=== PATIENT | female | born 1955 | race Caucasian/White ===

== ENCOUNTER → 2016-03-30 | Day surgery (SDC) | payer BC ==
[2016-03-17 13:18] VITALS: BMI 24.0
[~2016-03-30] VITALS: Ht 160 cm; Wt 63.6 kg
[~2016-03-30] MED LIST: ACET-1138 PO; ALBU1AER9 INH; ASPEC81 PO; B-COTAB18 PO; CLB200 PO; CYM/30 PO; DIPROSONE TOP; DPRSCR15 TOP; DULO60CA44 PO; IBUP-1050 PO; LAMO100T PO; LIDOCAINE HCL 2% 2 ML VIAL (20MG/ML) ONE; LVQ750 PO; OMEG10007 PO; ONDA8TAB6 PO; PROPOFOL IV EMULSION 10 MG/ML 20 ML VIAL IV ONE; RXC5 PO; SNK PO; SODIUM CHLORIDE 0.9% 500ML 500 ML IV ONE; TRIA75TA53 PO; VNTHFA/IN INH
[2016-03-30 14:39] VITALS: Ht 160 cm; Wt 63.6 kg
--- NOTE | 2016-03-30 15:05 | Endo History and Physical ---
History & Physical Date of Service: Mar 30, 2016. Chief Complaint: screening for colon CA Referring Physician: DR. Antoine Rothman History of Present Illness 60 yo CF who presents for screening colonoscopy. Past Medical History Asthma, Anxiety, Hypertension Past Surgical History Hx Cardiac Surgery: No Hx Internal Defibrillator: No Hx Pacemaker: No Hx Abdominal Surgery: Yes (TUBAL LIGATION, LAP OVARIAN CYSTECTOMY) Hx of Implantable Prosthesis: No Hx Post-Op Nausea and Vomiting: No Hx Cancer Surgery: No Hx Thoracic Surgery: No Hx Orthopedic: Yes (LT FOOT SURG) Hx Urinary Tract Surgery: No Family History None Social History Smoking Status: Former Smoker Hx Substance Use: No Hx Alcohol Use: Yes (OCCASIONAL) Allergies Coded Allergies: Latex1 -Allergic Contact Dermititis (Verified Allergy, Unknown, RASH, ) NO KNOWN DRUG ALLERGIES (Verified Allergy, Unknown, NONE, 03/24/16) Current Medications Reported Home Medications Medications Dose Route/Sig Max Daily Dose Days Date Category Dose Instructions Advil (Ibuprofen) 200 Mg Tab 400-600 Mg PO PRN 03/24/16 Reported Vitamin B Complex (B-Complex Vitamins) 1 Tab Tab 1 Tab PO QPM 03/24/16 Reported Weston-3 (Fish Oil) 1 Ea Cap 2 Cap PO QPM 03/24/16 Reported [Diprosone Cr] 1 Dose TOP PRN 03/24/16 Reported 0.05% CREAM Lamictal (Lamotrigine) 100 Mg Tab 100 Mg PO QAM 08/20/14 Reported Cymbalta (Duloxetine Hcl) 60 Mg Cap 60 Mg PO QAM 08/20/14 Reported Cymbalta (Duloxetine HCl) 30 Mg Cap 30 Mg PO QAM 08/20/14 Reported Maxzide 75MG/50MG (Triamterene/HCTZ) Tab 0.5 Tablet PO QAM 08/14/11 Reported Proair Hfa (Albuterol) Aers 2 Puffs INH Q4HR PRN PRN 08/14/11 Reported Vital Signs Weight (Kilograms): 63.64 Height (Feet): 5 Height (Inches): 3 Date Time Temp Pulse Resp B/P Pulse Ox O2 Delivery O2 Flow Rate FiO2 03/30/16 14:51 36.7 71 20 159/77 97 Room Air Physical Exam General Appearance: WD/WN, no apparent distress Respiratory/Chest: Auscultation: breath sounds normal Cardiovascular: Heart Auscultation: RRR Abdomen: Bowel Sounds: normal Inspection & Palpation: soft, non-distended, no tenderness, guarding & rebound Assessment and Plan Assessment: 60 yo CF who presents for screening colonoscopy. Plan: Proceed with colonoscopy.
--- NOTE | 2016-03-30 15:27 | Discharge Instructions ---
Endoscopy Patient Instructions Date / Procedure(s) Performed Mar 30, 2016. Colonoscopy Allergy Information Coded Allergies: Latex1 -Allergic Contact Dermititis (Verified Allergy, Unknown, RASH, ) NO KNOWN DRUG ALLERGIES (Verified Allergy, Unknown, NONE, 03/24/16) Discharge Date / Findings Mar 30, 2016. Diverticulosis Internal hemorrhoids Medication Instructions Stopped Medication(s): vitamins OK to resume all medications today as prescribed. Reported Home Medications Medications Dose Route/Sig Max Daily Dose Days Date Category Dose Instructions Advil (Ibuprofen) 200 Mg Tab 400-600 Mg PO PRN 03/24/16 Reported Vitamin B Complex (B-Complex Vitamins) 1 Tab Tab 1 Tab PO QPM 03/24/16 Reported Todd-3 (Fish Oil) 1 Ea Cap 2 Cap PO QPM 03/24/16 Reported [Diprosone Cr] 1 Dose TOP PRN 03/24/16 Reported 0.05% CREAM Lamictal (Lamotrigine) 100 Mg Tab 100 Mg PO QAM 08/20/14 Reported Cymbalta (Duloxetine Hcl) 60 Mg Cap 60 Mg PO QAM 08/20/14 Reported Cymbalta (Duloxetine HCl) 30 Mg Cap 30 Mg PO QAM 08/20/14 Reported Maxzide 75MG/50MG (Triamterene/HCTZ) Tab 0.5 Tablet PO QAM 08/14/11 Reported Proair Hfa (Albuterol) Aers 2 Puffs INH Q4HR PRN PRN 08/14/11 Reported Provider Instructions Activity Restrictions - No exercising or heavy lifting for 24 hours. - Do not drink alcohol the day of the procedure. - Do not drive a car or operate machinery until the day after the procedure. - Do not make any important decisions or sign important papers in 24 hours after the procedure. Following Day: - Return to full activity which may include returning to work/school. Diet Start your diet with liquids and light foods (jello, soup, juice, toast). Then eat your usual diet if not nauseated. Treatment For Common After Affects For mild abdominal pain, bloating, or excessive gas: - Rest - Eat lightly - Lie on right side Follow-Up Information Follow-up with DR. Antoine Rothman as scheduled Anesthesia Information What You Should Know You have had a procedure that required some medicine to reduce anxiety and discomfort. This treatment is called moderate sedation. After receiving the treatment, you may be sleepy, but you will be able to breathe on your own. The effects of the treatment may last for several hours. Follow these instructions along with Activity/Diet recommendations noted above: * Do NOT do anything where dizziness or clumsiness would be dangerous. * Rest quietly at home today, then you can be up and about tomorrow. * Have a responsible person stay with you the rest of today. * You may have had an I.V. today. If so, you may take the dressing off later today. Recommendations Call your doctor if: * Trouble breathing * Continuous vomiting for more than 24 hours * Temperature above 101 degrees * Severe abdominal pain or bloating * Pain not relieved by pain medicine ordered * There is increased drainage or redness from any incision * A large amount of rectal bleeding greater than 2-3 tablespoons. (If you had a polyp/s removed or have hemorrhoids, a small amount of blood - from the rectum is to be expected.) * You have any unanswered questions or concerns. IN THE EVENT OF A SERIOUS EMERGENCY, GO TO THE NEAREST EMERGENCY ROOM Your discharge instructions were prepared by provider Dwayne Arndt. Patient Instructions Signature Page Ernestine Brandon Patient (or Guardian) Signature/Date: I have read and understand the instructions given to me by my caregivers. Caregiver/RN/Doctor Signature/Date: The above-named patient and/or guardian has received patient instructions on this date. + Original Patient Signature Page (only) stays with chart. Please make copy for patient.
--- NOTE | 2016-03-30 15:29 | GI REPORT ---
Procedure Date: 03/30/2016 3:07 PM Procedure: Colonoscopy Indications: Screening for colorectal malignant neoplasm Medicines: Monitored Anesthesia Care Complications: No immediate complications. Estimated Blood Loss: Estimated blood loss: none. Procedure: Pre-Anesthesia Assessment: - Prior to the procedure, a History and Physical was performed, and patient medications and allergies were reviewed. The patient's tolerance of previous anesthesia was also reviewed. The risks and benefits of the procedure and the sedation options and risks were discussed with the patient. All questions were answered, and informed consent was obtained. Prior Anticoagulants: The patient has taken no previous anticoagulant or antiplatelet agents. ASA Grade Assessment: II - A patient with mild systemic disease. After reviewing the risks and benefits, the patient was deemed in satisfactory condition to undergo the procedure. After I obtained informed consent, the scope was passed under direct vision. Throughout the procedure, the patient's blood pressure, pulse, and oxygen saturations were monitored continuously. The scope was introduced through the anus and advanced to the terminal ileum. The colonoscopy was performed without difficulty. The patient tolerated the procedure well. The quality of the bowel preparation was good. The terminal ileum, ileocecal valve, appendiceal orifice, and rectum were photographed. Findings: Multiple small-mouthed diverticula were found in the sigmoid colon. Non-bleeding internal hemorrhoids were found during retroflexion. The hemorrhoids were small. Non-bleeding external hemorrhoids were found during perianal exam. The hemorrhoids were small. Impression: - Diverticulosis in the sigmoid colon. - Non-bleeding internal hemorrhoids. - Non-bleeding external hemorrhoids. - No specimens collected. Recommendation: - Resume previous diet. - Continue present medications. - Repeat colonoscopy in 10 years for surveillance. - Return to primary care physician as previously scheduled. Dwayne Arndt DO 03/30/2016 3:29:18 PM This report has been signed electronically. Note Initiated On: 03/30/2016 3:07 PM I attest to the content of the Intraoperative Record and orders documented therein, exceptions below
--- NOTE | 2016-03-30 15:35 | Anesthesiology Progress Note ---
Anesthesia Post Op Note Date & Time Mar 30, 2016 at 15:36 Vital Signs Pain Intensity: 0 Vital Signs Past 12 Hours Date Time Temp Pulse Resp B/P Pulse Ox O2 Delivery O2 Flow Rate FiO2 03/30/16 14:51 36.7 71 20 159/77 97 Room Air Notes Mental Status: alert / awake / arousable, participated in evaluation Pt Amnestic to Procedure: Yes Nausea / Vomiting: adequately controlled Pain: adequately controlled Airway Patency, RR, SpO2: stable & adequate BP & HR: stable & adequate Hydration State: stable & adequate Anesthetic Complications: no major complications apparent
[2016-03-30 15:55] VITALS: BP 140/66; PULSE 64; O2SAT 99
== END | disposition home or self-care (01) ==
LOC: C.GI 12:38
PROVIDERS: ATTEND Internal Medicine
DX: Z12.11 Encounter for screening for malignant neoplasm of colon (principal); K57.30 Diverticulosis of large intestine without perforation or abscess without bleeding; I10 Essential (primary) hypertension; K64.8 Other hemorrhoids; K64.4 Residual hemorrhoidal skin tags; J45.909 Unspecified asthma, uncomplicated; Z98.51 Tubal ligation status; Z98.890 Other specified postprocedural states; Z87.891 Personal history of nicotine dependence; Z91.040 Latex allergy status; Z68.24 Body mass index [BMI] 24.0-24.9, adult

== ENCOUNTER 2016-04-11 05:12 | Inpatient (IN) | payer BC ==
[2016-03-24 11:30] VITALS: BMI 28.0
--- NOTE | 2016-03-24 12:04 | PAT Medication Instructions ---
Service Date Mar 24, 2016. Current Home Medication List Albuterol (Proair Hfa), 2 PUFFS INH Q4HR PRN PRN for SOB/Wheezing B-Complex Vitamins (Vitamin B Complex), 1 TAB PO QPM Duloxetine HCl (Cymbalta), 30 MG PO QAM Duloxetine Hcl (Cymbalta), 60 MG PO QAM Fish Oil (Olton-3), 2 CAP PO QPM Ibuprofen (Advil), 400-600 MG PO PRN Lamotrigine (Lamictal), 100 MG PO QAM Triamterene/Hctz (Maxzide 75MG/50MG), 0.5 TABLET PO QAM [Diprosone Cr], 1 DOSE TOP PRN Medication Instructions For Your Scheduled Surgery Ibuprofen (Advil), 400-600 MG PO PRN (patient will check with surgeon for instructions) - Hold the following medications 2 weeks prior to surgery: Fish Oil (Olton-3), 2 CAP PO QPM - Hold the following medications the morning of surgery: Triamterene/Hctz (Maxzide 75MG/50MG), 0.5 TABLET PO QAM - Take the following medications the morning of surgery with a sip of water: Lamotrigine (Lamictal), 100 MG PO QAM Duloxetine HCl (Cymbalta) Albuterol (Proair Hfa), 2 PUFFS INH Q4HR PRN PRN for SOB/Wheezing (bring with you to hospital on day of surgery) - Take the following medications as scheduled the night before surgery: B-Complex Vitamins (Vitamin B Complex), 1 TAB PO QPM Albuterol (Proair Hfa), 2 PUFFS INH Q4HR PRN PRN for SOB/Wheezing (if needed) If you have any questions please call us at [phone] or [phone] ( [place]) or [phone]
--- NOTE | 2016-03-24 13:09 | DIAGNOSTIC IMAGING REPORT ---
CHEST PREADMISSION(PA/LAT) CLINICAL HISTORY: PAT preoperative evaluation COMPARISON STUDY: 07/27/2010 FINDINGS: The bones soft tissues and hemidiaphragms are normal. The cardiomediastinal silhouette is normal. The lungs are clear. The pulmonary vasculature is normal. IMPRESSION: Negative chest. Electronically signed by: Yonis Thomas M.D. 03/24/2016 1:07 PM Dictated Date/Time: 03/24/2016 1:07 PM
[2016-03-24 13:18] LABS: BASO % 0.5 %; BASO ABS # 0.03 K/uL (0-0.2); COMPLETE YES; EOS % 4.5 %; HEMATOCRIT 37.2 % (37-47); IG% 0.2 %; LYMPH % 43.5 %; LYMPH ABS # 2.59 K/uL (1.2-3.4); MEAN CELL VOLUME 88.8 fL (80-100); MEAN CORPUSCULAR HEMOGLOBIN 31.3 pg (25-34); MEAN CORPUSCULAR HGB CONC 35.2 g/dl (32-36); MEAN PLATELET VOLUME 10.7 fL (7.4-10.4); MONO % 6.7 %; NEUT % 44.6 %; PLATELET COUNT 187 K/uL (130-400); RED BLOOD COUNT 4.19 M/uL (4.2-5.4); WHITE BLOOD COUNT 5.96 K/uL (4.8-10.8)
[2016-03-24 13:24] LABS: URINE APPEARANCE CLEAR (CLEAR); URINE BILIRUBIN NEG (NEG); URINE COLOR YELLOW; URINE NITRITE NEG (NEG); URINE PH 6.5 (4.5-7.5); URINE SPECIFIC GRAVITY 1.011 (1.000-1.030); UROBILINOGEN NEG (NEG); ZZUR CULT IF INDIC CLEAN CATCH NO
[2016-03-24 13:31] LABS: MANUAL MICROSCOPIC REQUIRED? NO; REVIEW REQ? NO
[2016-03-24 13:51] LABS: PARTIAL THROMBOPLASTIN RATIO 1.1; PROTHROMBIN TIME (PATIENT) 10.4 SECONDS (9.0-12.0)
[2016-03-24 13:52] LABS: BUN/CREATININE RATIO 40.9 (10-20); CALCIUM 9.1 mg/dl (8.5-10.1); CREATININE 0.87 mg/dl (0.60-1.20); POTASSIUM 3.8 mmol/L (3.5-5.1)
--- NOTE | 2016-04-08 09:45 | HISTORY & PHYSICAL EXAMINATION ---
DATE OF ADMISSION: 04/11/2016 CHIEF COMPLAINT: Left hip pain. HISTORY OF PRESENT ILLNESS: Ernestine is a 60-year-old female with a multiple-year history of pain in her left hip. She rates her pain an 8/10. She has pain with her daily activities. She has limited standing and walking tolerance. Pain is worse with weightbearing. The patient has had anti-inflammatories and home exercise program without relief. She has failed conservative treatment and is scheduled for left hip replacement. PAST MEDICAL HISTORY: Hypertension, COPD, anxiety, and spinal stenosis. She denies heart disease, diabetes or DVT. PAST SURGICAL HISTORY: Cataract extraction, Lasik surgery, left foot reconstruction, ovarian cyst and tubal ligation. SOCIAL HISTORY: The patient drinks alcohol rarely. She denies tobacco use. She lives in a 2-story home. She is . 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 FAMILY HISTORY: Negative for DVT. MEDICATIONS: Albuterol 2 puffs p.r.n., vitamin B complex, duloxetine 30 mg a.m. and 60 mg a.m., fish oil 2 capsules daily, ibuprofen 400-600 mg p.r.n., Lamictal 100 mg, Maxzide 75/50.5 q.a.m. ALLERGIES: None. REVIEW OF SYSTEMS: See HPI. Ten other systems reviewed, all negative. PHYSICAL EXAMINATION: VITAL SIGNS: Height 5 foot 2, weight 156 pounds, BMI 29. GENERAL: This is a well-developed, well-nourished female who is alert and oriented x3. Mood and affect are appropriate. HEAD, EYES, EARS, NOSE, AND THROAT: Normocephalic, atraumatic. Mucous membranes are moist and intact. NECK: Supple without lymphadenopathy. HEART: Regular rate and rhythm without murmurs, rubs or gallops. LUNGS: Clear to auscultation without wheezes or rhonchi. ABDOMEN: Soft and nontender. Bowel sounds are equal and active. EXTREMITIES: No ecchymosis, redness or warmth. Thigh and calf are soft and nontender. Log roll of the hip reproduces pain in the groin. She is neurovascularly intact with +5/5 strength. X-RAY EXAMINATION: AP and lateral views show joint space narrowing and osteophyte formation. IMPRESSION: Degenerative joint disease, left hip. PLAN: The patient will be admitted for a left total hip arthroplasty. We will plan on aspirin for DVT prophylaxis. PCP is Dr. Daron Durand at [facility]. She will have [facility] for home physical therapy.
[~2016-04-11] VITALS: Ht 157.5 cm; Wt 71.2 kg
[2016-04-11] VITALS (11 sets, daily range): BP systolic 122–161; BP diastolic 67–78; PULSE 60–80; TEMP 36.3–36.6; O2SAT 97–100; Ht 157.5 cm; Wt 71.2 kg
[~2016-04-11 05:12] MED LIST changes: -ACET-1138 PO; -ASPEC81 PO; -CLB200 PO; -DPRSCR15 TOP; -LIDOCAINE HCL 2% 2 ML VIAL (20MG/ML) ONE; -LVQ750 PO; -ONDA8TAB6 PO; -PROPOFOL IV EMULSION 10 MG/ML 20 ML VIAL IV ONE; -RXC5 PO; -SNK PO; -SODIUM CHLORIDE 0.9% 500ML 500 ML IV ONE; -VNTHFA/IN INH
[2016-04-11] MEDS ORDERED: LACTATED RINGER'S 1000ML 1,000 ML IV SCH (06:00)
[2016-04-11] MEDS ORDERED: OXYCODONE HCL 10 MG TABCR (OXYCONTIN) PO SCH (06:00)
[2016-04-11] MEDS ORDERED: ROPIVACAINE 5MG/ML 30 ML 150 MG, BUPIVACAINE/EPINEPHR 0.5% MPF 30 ML, KETOROLAC TROMETH... INFIL SCH ×7 (06:00)
[2016-04-11] MEDS ORDERED: DEXAMETHASONE 4 MG TAB PO SCH (06:00)
[2016-04-11] MEDS ORDERED: METOCLOPRAMIDE HCL 10 MG TAB PO SCH (06:00)
[2016-04-11] MEDS ORDERED: POLYMYXIN B SULFATE 100,000 UNITS in NSS 100ML IR SCH (06:00)
[2016-04-11] MEDS ORDERED: VANCOMYCIN INJ 400 MG in NSS 100ML IR SCH (06:00)
[2016-04-11] MEDS ORDERED: TRAMADOL HCL 50 MG TAB PO SCH (06:00)
[2016-04-11] MEDS ORDERED: ACETAMINOPHEN 500 MG TAB PO SCH (06:00)
[2016-04-11] MEDS ORDERED: LACTATED RINGER'S 1000ML IV SCH (06:00)
[2016-04-11] MEDS ORDERED: FAMOTIDINE 20 MG TAB PO SCH (06:00)
[2016-04-11] MEDS ORDERED: CEFAZOLIN 2000 MG/60 ML D5W 60 ML IV SCH (06:00)
[2016-04-11] MEDS ORDERED: GABAPENTIN 300 MG CAP PO SCH (06:00)
[2016-04-11] MEDS ORDERED: CeleBREX 200 MG CAP PO SCH (06:00)
[2016-04-11] MEDS ORDERED: LACTATED RINGER'S 1000ML 500 ML IV ONE (06:00)
[2016-04-11] MEDS: TRANEXAMIC ACID INJ 1,000 MG in SODIUM CHLORIDE 0.9% 100ML 100 ML IV SCH ×2 (06:16→06:30)
[2016-04-11] MEDS ORDERED: BUPIVACAINE 0.5 % 5 MG/1 ML PF 10ML VIAL ONE (06:25)
[2016-04-11] MEDS ORDERED: FENTANYL CITRATE INJ 50 MCG/1 ML 2 ML VIAL ONE (06:37)
[2016-04-11] MEDS ORDERED: MIDAZOLAM HCL 1 MG/ML 2ML VIAL ONE (06:37)
--- NOTE | 2016-04-11 06:42 | History & Physical Bridge Note ---
H&P Re-Evaluation Bridge Note: I have examined the patient, reviewed the History & Physical and in the interval since the performance of the History & Physical I have noted the following changes of clinical significance: No changes noted
[2016-04-11] MEDS ORDERED: ORTHO JOINT ANESTHETIC ONE (06:49)
[2016-04-11] MEDS ORDERED: BACITRACIN 50000 UNIT VIAL ONE (06:50)
[2016-04-11] MEDS ORDERED: POVIDONE-IODINE OP SOLN 30 ML BTL ONE (06:50)
[2016-04-11] MEDS ORDERED: LIDOCAINE HCL 2% 2 ML VIAL (20MG/ML) ONE (07:18)
[2016-04-11] MEDS ORDERED: PROPOFOL IV EMULSION 10 MG/ML 20 ML VIAL IV ONE (07:18)
[2016-04-11] MEDS ORDERED: ONDANSETRON INJ 2 MG/ML 2 ML VIAL IV PRN ×2 (08:00→08:30)
[2016-04-11] MEDS ORDERED: MEPERIDINE HCL 25 MG/ML CARP IV PRN (08:00)
[2016-04-11] MEDS ORDERED: HYDROmorphone INJ 2 MG/ML SYR/VIAL IV PRN (08:00)
[2016-04-11] MEDS ORDERED: EpHEDrine SULFATE INJ 50 MG/ML AMP IV PRN (08:00)
[2016-04-11] MEDS ORDERED: PHENYLEPHRINE 100MCG/ML 5ML SYR IV PRN (08:00)
[2016-04-11] MEDS ORDERED: FLUMAZENIL 0.1 MG/1 ML 10 ML VIAL IV PRN (08:00)
[2016-04-11] MEDS ORDERED: FENTANYL CITRATE INJ 50 MCG/1 ML 2 ML VIAL IV PRN (08:00)
[2016-04-11] MEDS ORDERED: NALOXONE HCL 0.4 MG/1 ML VIAL/CARP IV PRN (08:00)
[2016-04-11] MEDS ORDERED: LABETALOL HCL IV 5 MG/ML 20ML IV PRN (08:00)
[2016-04-11] MEDS ORDERED: ATROPINE SULFATE 0.1 MG/ML 5ML SYR IV PRN (08:00)
--- NOTE | 2016-04-11 08:27 | [facility] Post Operative Brief Note ---
Immediate Operative Summary Operative Date Apr 11, 2016. Pre-Operative Diagnosis Degenerative joint disease, left hip Post-Operative Diagnosis Degenerative joint disease, left hip Procedure(s) Performed Left total hip arthroplasty, direct anterior approach Surgeon Dr Soto Stack Direct Support Worker Surgeon(s) Britany Camarena PA-C Estimated Blood Loss 100ML Findings DJD Specimens A: Left femoral head Complication(s) None Disposition Recovery Room / PACU
[2016-04-11] MEDS ORDERED: ZOLPIDEM TARTRATE 5 MG TAB PO PRN (08:30)
[2016-04-11] MEDS ORDERED: BISACODYL 10 MG SUPP PR PRN (08:30)
[2016-04-11] MEDS ORDERED: METOCLOPRAMIDE HCL INJ 5 MG/ML 2 ML VIAL IV PRN (08:30)
[2016-04-11] MEDS ORDERED: TRAMADOL HCL 50 MG TAB PO PRN (08:30)
[2016-04-11] MEDS ORDERED: DiphenhydrAMINE HCL 50 MG/ML VIAL IV PRN (08:30)
[2016-04-11] MEDS ORDERED: ALUMINUM/MAGNESIUM/SIMETH (MAALOX MAX) 30 ML UDC PO PRN (08:30)
[2016-04-11] MEDS ORDERED: MoRPHine SULFATE 2 MG/ML CARP IV PRN (08:30)
[2016-04-11] MEDS ORDERED: SOD PHOSPHATE/SOD BIPHOSPHATE ENEMA 132 ML BTL PR PRN (08:30)
[2016-04-11] MEDS ORDERED: OXYCODONE HCL IR 5 MG TAB (IMMEDIATE RELEASE) PO PRN (08:30)
[2016-04-11] MEDS ORDERED: ALBUTEROL HFA 8 GM INHALER INH PRN (08:30)
[2016-04-11] MEDS ORDERED: MAGNESIUM HYDROXIDE SUSP 30 ML UDC PO PRN (08:30)
--- NOTE | 2016-04-11 08:41 | DIAGNOSTIC IMAGING REPORT ---
INTRAOPERATIVE FLUOROSCOPIC IMAGES OF THE LEFT HIP CLINICAL HISTORY: Total left hip arthroplasty. COMPARISON STUDY: Hip radiographs December 08, 2015. Fluoroscopy time: 8 seconds. FINDINGS: 2 intraoperative fluoroscopic images demonstrate anatomic alignment of the left hip arthroplasty with expected postsurgical findings. There is an acetabular screw. There is no fracture. No unexpected radiopaque foreign body is identified. IMPRESSION: Expected intraoperative findings during total left hip arthroplasty. Electronically signed by: Alexander Chambers M.D. 04/11/2016 8:39 AM Dictated Date/Time: 04/11/2016 8:28 AM
--- NOTE | 2016-04-11 09:30 | Anesthesiology Progress Note ---
Anesthesia Post Op Note Date & Time Apr 11, 2016 at 09:30 Vital Signs Pain Intensity: 0 Vital Signs Past 12 Hours Date Time Temp Pulse Resp B/P Pulse Ox O2 Delivery O2 Flow Rate FiO2 04/11/16 09:20 65 18 118/71 100 Nasal Cannula 2 04/11/16 09:10 62 18 122/64 100 Nasal Cannula 2 04/11/16 09:00 64 18 127/63 100 Mask 10 04/11/16 08:53 36.9 66 18 131/71 98 Mask 10 04/11/16 05:42 36.6 74 20 161/71 98 Room Air Notes Mental Status: alert / awake / arousable, participated in evaluation Pt Amnestic to Procedure: Yes Nausea / Vomiting: adequately controlled Pain: adequately controlled Airway Patency, RR, SpO2: stable & adequate BP & HR: stable & adequate Hydration State: stable & adequate Neuraxial Anesthesia: was administered, sensory block is resolving Anesthetic Complications: no major complications apparent
--- NOTE | 2016-04-11 10:30 | DIAGNOSTIC IMAGING REPORT ---
LEFT PELVIS/UNILATERAL HIP 1 VIEW CLINICAL HISTORY: Left hip degenerative arthritis. Arthroplasty. COMPARISON: Hip radiographs December 08, 2015. FINDINGS: Alignment of the total left hip arthroplasty is anatomic. There is no fracture or unexpected radiopaque foreign body. Acetabular screw is present. Surgical drain is in place. IMPRESSION: Expected findings following total left hip arthroplasty. Electronically signed by: Alexander Chambers M.D. 04/11/2016 10:29 AM Dictated Date/Time: 04/11/2016 10:28 AM
[2016-04-11] MEDS: MULTIVITAMIN TAB PO SCH (12:07)
[2016-04-11] MEDS: PANTOprazole SOD 40 MG TAB PO SCH (12:07)
[2016-04-11] MEDS: D5W AND 1/2NSS + 20MEQ KCL 1,000 ML IV SCH ×2 (12:08→20:46)
[2016-04-11] MEDS: KETOROLAC TROMETHAMINE 30 MG/ML VIAL IV. SCH ×3 (12:09→23:12)
[2016-04-11] MEDS: ACETAMINOPHEN 500 MG TAB PO SCH ×2 (13:52→21:55)
[2016-04-11] MEDS: CEFAZOLIN IV 2,000 MG in DEXTROSE 5% 50ML 50 ML IV SCH ×2 (14:26→21:55)
[2016-04-11] MEDS ORDERED: TRANEXAMIC ACID INJ 1,000 MG in SODIUM CHLORIDE 0.9% 100ML 100 ML IV SCH (16:00)
--- NOTE | 2016-04-11 17:14 | OPERATIVE REPORT ---
DATE OF OPERATION: 04/11/2016 PREOPERATIVE DIAGNOSIS: Degenerative arthritis, left hip. POSTOPERATIVE DIAGNOSIS: Same. PROCEDURE: Left hip replacement. SURGEON: Soto Stack MD MOVIE MACHINE OPERATOR: PAULY Naylor ANESTHESIA: Spinal. BLOOD LOSS: 100 mL. REPLACEMENT FLUIDS: 1700 mL crystalloid. DRAINS: Hemovac x2. CULTURES: None. COMPLICATIONS: None. COMPONENTS USED: [employer] hip system: Acetabulum size 50, femur size 6 standard offset, and femoral head 0, 32 mm. NOTE: PAULY Naylor was present and assisted throughout due to the complicated nature of this case. She helped with preparation and set up, first assisted throughout and personally closed the fascial, subcutaneous and skin layers and applied the postoperative bandage. DESCRIPTION OF PROCEDURE: Following satisfactory spinal, the patient was supine. The right leg was placed in the well leg valdes and the left leg in the traction device. The leg was prepared with ChloraPrep and draped sterilely. Following a surgical time-out, an anterior approach in the interval between the sartorius and tensor muscles was completed. The circumflex femoral vessels were identified and ligated. An anterior capsulotomy was performed exposing a severely arthritic femoral neck and head. The femoral neck and head were trimmed and removed. The acetabular bone content was removed. The acetabular self-retraining retractor was placed and then reaming was completed. Fluoroscopic guidance was used to impact a 50 shell in an anatomic position and secured with a dome screw. Local anesthetic was placed and after irrigation, the polyethylene liner was placed. The femur was placed into position of external rotation, extension and adduction. Femoral canal was prepared up to the size 6. A trial reduction with a 0 neck length head using fluoroscopy showed good fit and fill of the proximal canal and orthodox of leg lengths using anatomic landmarks. The trial component was removed. The final implant was placed. The hip was irrigated and reduced. A Betadine soak was performed. After 5 minutes, the Betadine was irrigated. A drain was placed. The arthrotomy was closed with #1 Vicryl. After irrigation, the fascia was closed with a running suture of 1 Vicryl, the subcutaneous tissues with 2-0 Vicryl and the skin with a running subcuticular stitch of 3-0 V-Loc. Dermabond and a dry dressing were applied. The patient was returned to her bed in stable condition. I attest to the content of the Intraoperative Record and any orders documented therein. Any exceptio ns are noted below.
[2016-04-11] MEDS: ASPIRIN 81 MG ECTAB PO SCH (20:45)
[2016-04-11] MEDS ORDERED: SENNA 8.6 MG TAB PO SCH (21:00)
[2016-04-12 03:20] VITALS: BP 114/67; PULSE 76; TEMP 36.4; O2SAT 95
[2016-04-12] MEDS: ACETAMINOPHEN 500 MG TAB PO SCH (06:02)
[2016-04-12] MEDS: KETOROLAC TROMETHAMINE 30 MG/ML VIAL IV. SCH ×2 (06:03→11:14)
[2016-04-12] MEDS: D5W AND 1/2NSS + 20MEQ KCL 1,000 ML IV SCH (07:03)
[2016-04-12 07:34] LABS: BASO % 0.3 %; BASO ABS # 0.02 K/uL (0-0.2); COMPLETE YES; EOS % 0.1 %; HEMATOCRIT 27.4 % (37-47); IG% 0.3 %; LYMPH % 22.3 %; LYMPH ABS # 1.68 K/uL (1.2-3.4); MEAN CELL VOLUME 85.1 fL (80-100); MEAN CORPUSCULAR HEMOGLOBIN 30.7 pg (25-34); MEAN CORPUSCULAR HGB CONC 36.1 g/dl (32-36); MEAN PLATELET VOLUME 9.9 fL (7.4-10.4); MONO % 9.2 %; NEUT % 67.8 %; PLATELET COUNT 133 K/uL (130-400); RED BLOOD COUNT 3.22 M/uL (4.2-5.4); WHITE BLOOD COUNT 7.53 K/uL (4.8-10.8)
[2016-04-12 08:00] LABS: BUN/CREATININE RATIO 22.4 (10-20); CALCIUM 8.1 mg/dl (8.5-10.1); CREATININE 0.76 mg/dl (0.60-1.20); POTASSIUM 3.8 mmol/L (3.5-5.1)
[2016-04-12 08:13] VITALS: BP 119/71; PULSE 69; TEMP 36.8; O2SAT 98
--- NOTE | 2016-04-12 08:19 | DISCHARGE SUMMARY ---
DISCHARGE DIAGNOSIS: Degenerative joint disease, left hip. SECONDARY DIAGNOSIS: None. CONSULTS: None. COMPLICATIONS: None. PROCEDURE: The patient underwent a direct anterior left total hip arthroplasty with Dr. Stack on 04/11/2016. BRIEF HISTORY: Please see previously dictated history and physical. HOSPITAL SUMMARY: The patient was admitted on the above day for the above procedure. Procedure went without complication. Postop day 1 the patient was feeling well without complaints. She denied chest pain or shortness of breath. Vital signs were stable. She was afebrile. Dressing was clean, dry and intact. She was neurovascularly intact. Calves were soft and nontender. Hemovac drained 127 and 10 mL per shift. Hemoglobin was 9.9. The patient began physical therapy per protocol. She was discharged to home later that day in stable condition. For further review please see the chart. Lab, x-ray data and discharge instructions as per chart.
[2016-04-12] MEDS ORDERED: ASPEC81 PO (08:24)
[2016-04-12] MEDS ORDERED: ONDA8TAB6 PO (08:24)
[2016-04-12] MEDS ORDERED: RXC5 PO (08:24)
[2016-04-12] MEDS ORDERED: SNK PO (08:24)
[2016-04-12] MEDS ORDERED: ACET-1138 PO (08:24)
[2016-04-12] MEDS ORDERED: CLB200 PO (08:24)
--- NOTE | 2016-04-12 08:26 | Discharge Instructions ---
Discharge Instructions Admission Reason for Admission: Left Hip Degenerative Arthritis Discharge Discharge Diagnosis / Problem: sp left LAURA, direct anterior Discharge Goals Goal(s): Decrease discomfort, Improve function, Increase independence Activity Recommendations Activity Limitations: per Instructions/Follow-up section . Instructions / Follow-Up Instructions / Follow-Up ACTIVITY RECOMMENDATIONS: SELF CARE INSTRUCTIONS AFTER TOTAL HIP REPLACEMENT : Direct Anterior Approach Until the incision and soft tissues around your hip have healed, there is a possibility that the hip prosthesis could dislocate. A. Hip flexion ( Up & Down out of chair or steps ) may be difficult. This is normal. B. Numbness in front of the thigh is also normal for a few weeks. C. Use hand rails when walking on stairs. D. Wear low heeled shoes with non-slip soles. E. Be sure that your floors are free of things that could trip you - throw rugs , electrical cords, small objects. Avoid wet and waxed floors, especially with crutches and canes. F. Try to walk several times a day with rest periods between. G. Continue with all the exercises taught to you in the hospital. Again, make walking a part of your daily routine. SPECIAL CARE INSTRUCTIONS: VERY IMPORTANT TO READ AND REVIEW A. You may still be at risk for phlebitis and blood clots. 1. Wear surgical stockings (LIZZIE hose) for 2 weeks after surgery to improve circulation and reduce swelling. 2. Take Aspirin 81mg twice daily for 4 weeks or as directed by your doctor. This is your blood thinner. 3. High risk patients may be prescribed a stronger blood thinner if necessary. 4. If you are on Coumadin normally, your family doctor/local company intermodal truck driver should monitor your blood work. Expect a phone call the day of or the day after bloodwork is drawn to adjust your dosage. B. You must take antibiotics before having dental work, bladder, bowel and other surgery. Your doctor will provide you with a permanent card to carry describing precautions. C. Call [facility] if you have a fever, redness or swelling around the incision, cloudy drainage from incision, or sudden increase in pain in your hip, not relieved by your regular pain medication. D. Please call the office at if you have any concerns or questions about your operation or recovery. * YOU MAY SHOWER, NO TUB BATHS UNTIL CLEARED BY YOUR DOCTOR. - Keep an extra close eye on the top portion of your incision. Be sure to keep clean & dry. * WEAR LIZZIE HOSE 20 HOURS PER DAY FOR 2 WEEKS. * YOU MAY PROGRESS FROM A WALKER, TO A CANE, TO INDEPENDENT AT YOUR OWN PACE. * MOST PATIENTS WILL HAVE HOME NURSING FOR THERAPY. IF YOU DECIDE TO DO OUTPATIENT PHYSICAL THERAPY, PLEASE SCHEDULE THIS 3 TIMES PER WEEK. * DERMABOND Prineo- This is a mesh tape dressing that is covered with glue. It should remain in place until the incision is properly healed, usually 10-14 days. This dressing is designed to naturally slough off. You may trim the excess mesh tape as it peels off. Incision may be briefly wet in a shower. Dry immediately by blotting with a clean, dry towel. Do not bath or swim until instructed by your doctor. Do not scratch, rub, or pick at the dressing. Do not apply any topical ointments or lotions until dressing is completely removed and/or instructed by your doctor. There may be a small piece of suture material at one end of your incision. Do not pull or trim this. If it is bothersome or catching on clothing, you may cover it with a band-aid. FOLLOW UP VISIT: If appointment is not already scheduled: Please call [facility] to make a follow-up appointment for 2 weeks after your surgery at . Current Hospital Diet Patient's current hospital diet: Regular Diet Discharge Diet Recommended Diet: Regular Diet Procedures Procedures Performed: Left total hip arthroplasty, direct anterior approach Pending Studies Studies pending at discharge: no Medical Emergencies . Who to Call and When: Medical Emergencies: If at any time you feel your situation is an emergency, please call 911 immediately. . Non-Emergent Contact Non-Emergency issues call your: Primary Care Provider . "Provider Documentation" section prepared by Britany Camarena. VTE Core Measure Inpt VTE Proph given/why not?: Other Anticoagulation, T.E.DWero Ramírez, SCD's [place] Drug Monitoring Program Search Results: patient reviewed within database, no issues identified
[2016-04-12] MEDS: ASPIRIN 81 MG ECTAB PO SCH (08:44)
[2016-04-12] MEDS: MULTIVITAMIN TAB PO SCH (08:45)
[2016-04-12] MEDS: PANTOprazole SOD 40 MG TAB PO SCH (08:45)
[2016-04-12] MEDS ORDERED: DULOXETINE HCL 60 MG CAP PO SCH (09:00)
[2016-04-12] MEDS ORDERED: DULOXETINE (CYMBALTA) 30 MG CAP PO SCH (09:00)
[2016-04-12 09:21] VITALS: BP 119/71; PULSE 69; TEMP 36.8; O2SAT 98
--- NOTE | 2016-04-12 10:06 | Anesthesiology Progress Note ---
Anesthesia Post Op Note Date & Time Apr 12, 2016 at 10:05 Vital Signs Pain Intensity: 0.0 Vital Signs Past 12 Hours Date Time Temp Pulse Resp B/P Pulse Ox O2 Delivery O2 Flow Rate FiO2 04/12/16 09:21 36.8 69 16 98 Room Air 04/12/16 08:19 Room Air 04/12/16 08:13 36.8 69 16 119/71 98 Room Air 04/12/16 03:20 36.4 76 16 114/67 95 Room Air 04/11/16 23:20 36.6 68 16 129/69 98 Room Air Notes Mental Status: alert / awake / arousable, participated in evaluation Pt Amnestic to Procedure: Yes Nausea / Vomiting: adequately controlled Pain: adequately controlled Airway Patency, RR, SpO2: stable & adequate BP & HR: stable & adequate Hydration State: stable & adequate Neuraxial Anesthesia: sensory block resolved Anesthetic Complications: no major complications apparent
[2016-04-12 12:27] VITALS: BP 164/83
[2016-04-13] MEDS ORDERED: CeleBREX 200 MG CAP PO SCH (21:00)
[2016-06-13] MEDS ORDERED: LVQ750 PO (09:55)
== END 2016-04-12 13:44 | disposition home health service (06) | DRG 470 ==
LOC: ENRESERVTM → ENRESERVDT → C.ACU 05:12 → C.3E 08:31
PROVIDERS: ADMIT Orthopaedic Surgery; ATTEND Orthopaedic Surgery
PROC: 0SRB04Z Replacement of Left Hip Joint with Ceramic on Polyethylene Synthetic Substitute, Open Approach (ICD-10-PCS; principal; 2016-04-11 07:00)
DX: M16.12 Unilateral primary osteoarthritis, left hip (principal); J44.9 Chronic obstructive pulmonary disease, unspecified; I10 Essential (primary) hypertension; F41.9 Anxiety disorder, unspecified; F32.9 Major depressive disorder, single episode, unspecified; M54.2 Cervicalgia; M54.5 Low back pain; M54.10 Radiculopathy, site unspecified; M48.00 Spinal stenosis, site unspecified; Z79.1 Long term (current) use of non-steroidal anti-inflammatories (NSAID); Z79.899 Other long term (current) drug therapy

== ENCOUNTER → 2016-04-25 | Outpatient (CLI) | payer BC ==
[~2016-04-25] MED LIST changes: +ACET-1138 PO; +ASPEC81 PO; +CLB200 PO; +DPRSCR15 TOP; -IBUP-1050 PO; +LVQ750 PO; +ONDA8TAB6 PO; +RXC5 PO; +SNK PO; +VNTHFA/IN INH
--- NOTE | 2016-04-26 08:02 | MAMMOGRAPHY REPORT ---
BILATERAL DIGITAL SCREENING MAMMOGRAM TOMOSYNTHESIS WITH CAD: 04/25/2016 CLINICAL HISTORY: Routine screening examination. TECHNIQUE: Breast tomosynthesis in addition to standard 2D mammography was performed. Current study was also evaluated with a Computer Aided Detection (CAD) system. COMPARISON: Comparison is made to exams dated: 04/21/2015 mammogram, 04/18/2014 mammogram, 04/17/2013 m ammogram, 04/11/2011, 04/09/2010, 04/08/2009, 04/07/2008 mammograms - [facility]. BREAST COMPOSITION: There are scattered areas of fibroglandular density in both breasts. FINDINGS: An 8 mm circumscribed mass in the upper outer quadrant of the right breast is unchanged in size dating back to at least 04/07/2008, therefore likely benign. No new suspicious mass, architec tural distortion or cluster of microcalcifications is seen. IMPRESSION: ACR BI-RADS CATEGORY 1: NEGATIVE There is no mammographic evidence of malignancy. A 1 year screening mammogram is recommended. The p atient will receive written notification of the results. Approximately 10% of breast cancers are not detected with mammography. A negative mammographic repor t should not delay biopsy if a clinically suggestive mass is present. Zoey Watkins M.D. ay/:04/25/2016 22:34:28 Environmental Director: Dejah CORTES)(Sen), [facility] letter sent: Normal 1/2 BI-RADS Code: ACR BI-RADS Category 1: Negative
== END | disposition home or self-care (01) ==
LOC: C.MAMM 13:17
PROVIDERS: ATTEND Obstetrics & Gynecology
DX: Z12.31 Encounter for screening mammogram for malignant neoplasm of breast (principal)

== ENCOUNTER 2016-06-10 06:47 | Inpatient (IN) | payer BC ==
[~2016-06-10] VITALS: Ht 157.5 cm; Wt 71.0 kg
[~2016-06-10 06:47] MED LIST changes: -DPRSCR15 TOP; -LVQ750 PO; -VNTHFA/IN INH
[2016-06-10] MEDS ORDERED: SODIUM CHLORIDE 0.9% 1000ML 1,000 ML IV STA (07:10)
[2016-06-10] MEDS ORDERED: PIPERACILLIN/TAZOBACTAM 4.5 GM/100ML D5W IV STA (07:15)
[2016-06-10] MEDS ORDERED: LEVAQUIN 750MG / 150ML D5W IV ONE (07:15)
[2016-06-10] MEDS ORDERED: VNTHFA/IN INH (07:21)
[2016-06-10 07:45] LABS: HEMATOCRIT 30.4 % (37-47); MEAN CELL VOLUME 86.1 fL (80-100); MEAN CORPUSCULAR HEMOGLOBIN 30.6 pg (25-34); MEAN CORPUSCULAR HGB CONC 35.5 g/dl (32-36); MEAN PLATELET VOLUME 9.3 fL (7.4-10.4); PLATELET COUNT 125 K/uL (130-400); RED BLOOD COUNT 3.53 M/uL (4.2-5.4); WHITE BLOOD COUNT 20.35 K/uL (4.8-10.8)
[2016-06-10 07:54] LABS: INR 1.1 (0.9-1.1); PARTIAL THROMBOPLASTIN RATIO 1.3; PROTHROMBIN TIME (PATIENT) 11.4 SECONDS (9.0-12.0)
[2016-06-10 08:03] LABS: BUN/CREATININE RATIO 13.9 (10-20); CREATININE 1.7 mg/dl (0.60-1.20); POTASSIUM 2.8 mmol/L (3.5-5.1)
--- NOTE | 2016-06-10 08:11 | DIAGNOSTIC IMAGING REPORT ---
CHEST 2 VIEWS ROUTINE CLINICAL HISTORY: Fever, sore throat, lightheadedness. COMPARISON STUDY: March 24, 2016 FINDINGS: The cardiac and mediastinal contours are normal. There is no evidence of focal pulmonary consolidation. There is no evidence of failure. No pleural effusions are visualized.[ IMPRESSION: No active disease in the chest. Electronically signed by: Enio Mo M.D. 06/10/2016 8:09 AM Dictated Date/Time: 06/10/2016 8:08 AM
[2016-06-10 08:13] LABS: BASO % 0.1 %; BASO ABS # 0.02 K/uL (0-0.2); COMPLETE YES; DOHLE BODIES 1+; IG% 0.4 %; LYMPH % 2.1 %; LYMPH ABS # 0.42 K/uL (1.2-3.4); MONO % 7.6 %; NEUT % 89.8 %; TOXIC GRANULATION 1+
[2016-06-10] MEDS ORDERED: POTASSIUM CHLORIDE 10 MEQ TABCR PO STA (08:15)
[2016-06-10 08:19] LABS: CALCIUM 8.6 mg/dl (8.5-10.1)
--- NOTE | 2016-06-10 08:25 | EMERGENCY ROOM VISIT NOTE ---
History First contact with patient: 06:57 Chief Complaint: REFERRED BY DOCTOR Stated Complaint: DR CALLED BLOOD CULTURE NEGATIVE History of Present Illness The patient is a 60 year old female who presents to the Emergency Room stating that she got a call from her family physician this morning and is growing gram- negative rods in her blood. The patient states that she went to her family doctor yesterday for feeling very weak after having cold symptoms of head congestion, cough and sore throat for 2 weeks. The patient states that she feels chilled but did not take her temperature. The patient states that her cold symptoms have improved. She has minimal cough. The patient denies any urinary symptoms of frequency, urgency, dysuria or hematuria. The patient had a left hip replacement in March. She denies any open wounds or areas of infection on her body. She states they did not do a chest x-ray yesterday at the doctor's office. Review of Systems 10 system review was performed and was negative unless stated otherwise history of present illness. Past Medical/Surgical History Surgical Problems: (1) Post-operative state Left hip replacement Social History Smoking Status: Never Smoker Alcohol Use: occasionally Drug Use: none Marital Status: Housing Status: lives with family Occupation Status: employed Current/Historical Medications Scheduled Albuterol Hfa (Ventolin Hfa), 2-4 PUFFS INH Q6H Duloxetine HCl (Cymbalta), 30 MG PO QAM Duloxetine Hcl (Cymbalta), 60 MG PO QAM Lamotrigine (Lamictal), 100 MG PO QAM Triamterene/Hctz (Maxzide 75MG/50MG), 0.5 TABLET PO QAM Allergies Coded Allergies: Latex1 -Allergic Contact Dermititis (Verified Allergy, Unknown, RASH, 06/10) NO KNOWN DRUG ALLERGIES (Verified Allergy, Unknown, NONE, 06/10/16) Physical Exam Vital Signs Date Time Temp Pulse Resp B/P Pulse Ox O2 Delivery O2 Flow Rate FiO2 06/10/16 06:53 36.9 100 18 89/49 97 Room Air Physical Exam VITALS: Temperature 36.9, blood pressure 89/49, pulse 100, respiratory rate 18, pulse ox 97% on room air. GENERAL: Patient is alert oriented in no acute distress. EYES: PERRLA. EOMs intact. EARS: Canals clear. TMs without fluid level noted. NOSE: Nasal mucosa with minimal erythema and engorgement. PARENTS: No erythema or edema noted. Airway is adequate. NECK: Supple, no lymphadenopathy noted. No carotid bruits noted. LUNGS: Clear auscultation without wheezes rales or rhonchi. CARDIAC: Regular rhythm, tachycardic at a rate of 100. No murmurs noted. Pulses is full and equal throughout. ABDOMEN: Positive bowel sounds all 4 quadrants. Soft, nontender to palpation without organomegaly or masses. NEURO:Cranial nerves two through 12 intact. Cerebellar function intact with [id number]. Fine motor intact with alternating finger motions. LEFT HIP: Anterior incision noted which is healing well. No erythema or drainage noted. No increased temperature to touch. SKIN: Cold and clammy. Medical Decision & Procedures ER Provider Diagnostic Interpretation: CHEST 2 VIEWS ROUTINE CLINICAL HISTORY: Fever, sore throat, lightheadedness. COMPARISON STUDY: March 24, 2016 FINDINGS: The cardiac and mediastinal contours are normal. There is no evidence of focal pulmonary consolidation. There is no evidence of failure. No pleural effusions are visualized.[ IMPRESSION: No active disease in the chest. Electronically signed by: Enio Mo M.D. Laboratory Results 06/10/16 07:30 Red Blood Count 3.53, Mean Corpuscular Volume 86.1, Mean Corpuscular Hemoglobin 30.6, Mean Corpuscular Hemoglobin Concent 35.5, Mean Platelet Volume 9.3, Neutrophils (%) (Auto) 89.8, Lymphocytes (%) (Auto) 2.1, Monocytes (%) (Auto) 7.6, Eosinophils (%) (Auto) 0.0, Basophils (%) (Auto) 0.1, Neutrophils # (Auto) 18.28, Lymphocytes # (Auto) 0.42, Monocytes # (Auto) 1.55, Eosinophils # (Auto) 0.00, Basophils # (Auto) 0.02 06/10/16 07:30 Test 06/10/16 07:30 White Blood Count 20.35 K/uL (4.8-10.8) Red Blood Count 3.53 M/uL (4.2-5.4) Hemoglobin 10.8 g/dL (12.0-16.0) Hematocrit 30.4 % (37-47) Mean Corpuscular Volume 86.1 fL (80-100) Mean Corpuscular Hemoglobin 30.6 pg (25-34) Mean Corpuscular Hemoglobin Concent 35.5 g/dl (32-36) Platelet Count 125 K/uL (130-400) Mean Platelet Volume 9.3 fL (7.4-10.4) Neutrophils (%) (Auto) 89.8 % Lymphocytes (%) (Auto) 2.1 % Monocytes (%) (Auto) 7.6 % Eosinophils (%) (Auto) 0.0 % Basophils (%) (Auto) 0.1 % Neutrophils # (Auto) 18.28 K/uL (1.4-6.5) Lymphocytes # (Auto) 0.42 K/uL (1.2-3.4) Monocytes # (Auto) 1.55 K/uL (0.11-0.59) Eosinophils # (Auto) 0.00 K/uL (0-0.5) Basophils # (Auto) 0.02 K/uL (0-0.2) RDW Standard Deviation 40.3 fL (36.4-46.3) RDW Coefficient of Variation 12.6 % (11.5-14.5) Immature Granulocyte % (Auto) 0.4 % Immature Granulocyte # (Auto) 0.08 K/uL (0.00-0.02) Toxic Granulation 1+ Dohle Bodies 1+ Prothrombin Time 11.4 SECONDS (9.0-12.0) Prothromb Time International Ratio 1.1 (0.9-1.1) Activated Partial Thromboplast Time 33.0 SECONDS (21.0-31.0) Partial Thromboplastin Ratio 1.3 Anion Gap 11.0 mmol/L (3-11) Est Creatinine Clear Calc Drug Dose 32.1 ml/min Estimated GFR () 37.1 Estimated GFR (Non- 32.0 BUN/Creatinine Ratio 13.9 (10-20) Lactic Acid Level 1.1 mmol/L (0.4-2.0) Calcium Level 8.6 mg/dl (8.5-10.1) Total Bilirubin 1.4 mg/dl (0.2-1) Direct Bilirubin 0.7 mg/dl (0-0.2) Aspartate Amino Transf (AST/SGOT) 29 U/L (15-37) Alanine Aminotransferase (ALT/SGPT) 33 U/L (12-78) Alkaline Phosphatase 210 U/L (45-117) Total Protein 7.1 gm/dl (6.4-8.2) Albumin 3.0 gm/dl (3.4-5.0) Lipase 130 U/L (73-393) Medications Administered Medications (Trade) Dose Ordered Sig/Holly Route Start Time Stop Time Status Last Admin Dose Admin Sodium Chloride (Nss 1000ml) 1,000 ml @ 999 mls/hr Q1H1M STAT IV 06/10/16 07:10 06/10/16 08:10 DC 06/10/16 07:48 999 MLS/HR Piperacillin Sod/ Tazobactam Sod (Zosyn Iv) 4.5 gm NOW STAT IV 06/10/16 07:15 06/10/16 07:18 DC 06/10/16 07:48 4.5 GM ED Course The patient was evaluated. IV access was obtained. CBC and differential, renal profile, LFTs and lipase levels, lactic acid, coags were ordered. Chest x -ray was ordered and interpreted by the radiologist myself as above. Urinalysis was ordered. Blood cultures 2 was ordered. I had the lining caser get the recent labs from [facility] which revealed a white count of 15.8 to and preliminary blood culture revealed gram negative rods. The patient was given 1 L normal saline wide-open, she was given Zosyn and Levaquin IV. Labs are reviewed. The patient's white count was 20,000 which is up 5000 from yesterday. The patient's potassium was low at 2.8. The patient was given K- Dur 10 milliequivalents by mouth. Chest x-ray revealed no acute infiltrate. The patient still was not able to give a urine. Went she was reevaluated the patient was reevaluated. The patient's case was discussed with Dr. Reyes who agrees with treatment plan. [facility] hospitalist was consulted for admission. Medical Decision Differential diagnosis include UTI, pyelonephritis, pneumonia, hip infection, bacteremia, sepsis Impression Primary Impression: Bacteremia Additional Impression: Hypokalemia Departure Information Dispostion Being Evaluated By Hospitalist Condition GOOD Referrals Antoine Rothman, D.O. (PCP) Patient Instructions My [facility] Problem Qualifiers
[2016-06-10 08:36] VITALS: O2SAT 97; Ht 157.5 cm; Wt 71.0 kg
[2016-06-10] MEDS ORDERED: ALBUTEROL HFA 8 GM INHALER INH PRN (09:00)
[2016-06-10] MEDS ORDERED: POLYETHYLENE (MIRALAX) 17 GM PACK PO PRN (09:00)
[2016-06-10] MEDS ORDERED: BETAMETHASONE DIP AUG (DIPROLENE) 0.05% CR 15 GM TUBE EXT PRN (09:00)
[2016-06-10] MEDS ORDERED: ONDANSETRON INJ 2 MG/ML 2 ML VIAL IV PRN (09:00)
[2016-06-10] MEDS ORDERED: SODIUM CHLORIDE 0.9% 1000ML 1,000 ML IV SCH (09:00)
[2016-06-10] MEDS ORDERED: DPRSCR15 TOP (09:02)
[2016-06-10] MEDS ORDERED: PIPERACILL/TAZOBAC CONSULT ACTIVE PRN (09:05)
[2016-06-10] MEDS ORDERED: POTASSIUM CHLORIDE 10 MEQ TABCR PO SCH (09:15)
--- NOTE | 2016-06-10 09:34 | History and Physical ---
History & Physical Date & Time of Service: Jun 10, 2016 at 09:10 Chief Complaint: Dr Called Blood Culture Negative Primary Care Physician: Antoine Rothman D.OWero History of Present Illness Source: patient, clinic records, hospital records Patient is a 60 y/o female with a PMHx of HTN who presents at the request of her PCP due to elevated WBC count and gram negative rods in a blood culture. Patient notes that she has been feeling unwell for the past 2 weeks. She has been feeling generalized weakness, lightheadedness, palpitations with activity, shaking chills and a cough productive of green sputum. She was seen in clinic on 06/03 for URI symptoms. She was prescribed Tessalon perls and Flonase and was recommended to try OTC medications for symptomatic relief. She followed up on as she was not feeling any better. She had blood work done and blood culture was growing gram negative rods this morning. CBC was also notable for a WBC count of 15. Patient presented to the ED as advised. Of note, patient did have a left hip replacement done in 03/2016. She denies any pain in her hip or any redness in the area. In the ED, vitals were notable for mild tachycardia and hypotension. Labs were remarkable for a WBC count of 20, Na of 127, Cr of 1.7, K of 2.8. CXR was negative. Patient received potassium, IVF's, Zosyn and Levofloxacin. Past Medical/Surgical History HTN Depression with anxiety Dermatitis of hands and feet Social History Smoking Status: Former Smoker Drug Use: none Marital Status: Housing status: lives with family Occupational Status: employed Immunizations History of Influenza Vaccine: Yes Influenza Vaccine Date: Dec 10, 2015 History of Tetanus Vaccine?: Yes Tetanus Immunization Date: Mar 18, 2010 History of Pneumococcal: Unknown History of Hepatitis B Vaccine: Yes Multi-Drug Resistant Organisms History of MDRO: No Allergies Coded Allergies: Latex1 -Allergic Contact Dermititis (Verified Allergy, Unknown, RASH, 06/10) NO KNOWN DRUG ALLERGIES (Verified Allergy, Unknown, NONE, 06/10/16) Home Medications Scheduled Duloxetine HCl (Cymbalta), 30 MG PO QAM Duloxetine Hcl (Cymbalta), 60 MG PO QAM Lamotrigine (Lamictal), 100 MG PO QAM Triamterene/Hctz (Maxzide 75MG/50MG), 0.5 TABLET PO QAM Scheduled PRN Albuterol Hfa (Ventolin Hfa), 2 PUFFS INH Q4 PRN for SOB/Wheezing Betamethasone Dip (Betamethasone Dipropionat), 1 APPLN TOP BID PRN for dermatitis flares Review of Systems Constitutional- +chills; +generalized weakness; +lightheadedness Eyes- denies blurry vision, double vision, loss of vision ENT- resolved nasal congestion; denies sore throat Pulmonary- denies SOB; +productive cough Cardiac- denies chest pain; +palpitations with exertion GI- denies abdominal pain, nausea, vomiting, diarrhea - denies dysuria, frequency, urgency; +cloudy urine; denies odor Musculoskeletal- +left thigh soreness; denies joint pain Dermatologic- +chronic rash to hands and feet (dermatitis) Neuro- denies focal weakness, numbness or tingling Psych- denies depression or anxiety . Physical Exam Vital Signs Date Time Temp Pulse Resp B/P Pulse Ox O2 Delivery O2 Flow Rate FiO2 06/10/16 09:05 84 06/10/16 08:58 87 18 93/57 99 Room Air 06/10/16 08:36 97 Room Air 06/10/16 06:53 36.9 100 18 89/49 97 Room Air General- awake; alert; NAD Eyes- EOMI; no scleral icterus ENT- clear OC/OP; upper dentures; poor dentition of lower teeth Neck- no palpable LAD; no stridor Lungs- CTA bilaterally; no wheezes/crackles Heart- RRR; no m/r/g Abdomen- soft; NTND; nBS Back- no gross abnormalities Extremities- full ROM of left hip; slight tenderness to palpation of left inner thigh Neuro- no focal deficits Skin- +dermatitis rash of fingers and toes with no open skin lesions/wounds; left hip incision well healed with no surrounding erythema . Diagnostics Laboratory Results Results Past 24 Hours Test 06/10/16 07:30 Range/Units White Blood Count 20.35 4.8-10.8 K/uL Red Blood Count 3.53 4.2-5.4 M/uL Hemoglobin 10.8 12.0-16.0 g/dL Hematocrit 30.4 37-47 % Mean Corpuscular Volume 86.1 80-100 fL Mean Corpuscular Hemoglobin 30.6 25-34 pg Mean Corpuscular Hemoglobin Concent 35.5 32-36 g/dl Platelet Count 125 130-400 K/uL Mean Platelet Volume 9.3 7.4-10.4 fL Neutrophils (%) (Auto) 89.8 % Lymphocytes (%) (Auto) 2.1 % Monocytes (%) (Auto) 7.6 % Eosinophils (%) (Auto) 0.0 % Basophils (%) (Auto) 0.1 % Neutrophils # (Auto) 18.28 1.4-6.5 K/uL Lymphocytes # (Auto) 0.42 1.2-3.4 K/uL Monocytes # (Auto) 1.55 0.11-0.59 K/uL Eosinophils # (Auto) 0.00 0-0.5 K/uL Basophils # (Auto) 0.02 0-0.2 K/uL RDW Standard Deviation 40.3 36.4-46.3 fL RDW Coefficient of Variation 12.6 11.5-14.5 % Immature Granulocyte % (Auto) 0.4 % Immature Granulocyte # (Auto) 0.08 0.00-0.02 K/uL Toxic Granulation 1+ Dohle Bodies 1+ Prothrombin Time 11.4 9.0-12.0 SECONDS Prothromb Time International Ratio 1.1 0.9-1.1 Activated Partial Thromboplast Time 33.0 21.0-31.0 SECONDS Partial Thromboplastin Ratio 1.3 Sodium Level 127 136-145 mmol/L Potassium Level 2.8 3.5-5.1 mmol/L Chloride Level 89 98-107 mmol/L Carbon Dioxide Level 27 21-32 mmol/L Anion Gap 11.0 3-11 mmol/L Blood Urea Nitrogen 24 7-18 mg/dl Creatinine 1.70 0.60-1.20 mg/dl Est Creatinine Clear Calc Drug Dose 32.1 ml/min Estimated GFR () 37.1 Estimated GFR (Non- 32.0 BUN/Creatinine Ratio 13.9 10-20 Random Glucose 112 70-99 mg/dl Lactic Acid Level 1.1 0.4-2.0 mmol/L Calcium Level 8.6 8.5-10.1 mg/dl Total Bilirubin 1.4 0.2-1 mg/dl Direct Bilirubin 0.7 0-0.2 mg/dl Aspartate Amino Transf (AST/SGOT) 29 15-37 U/L Alanine Aminotransferase (ALT/SGPT) 33 12-78 U/L Alkaline Phosphatase 210 45-117 U/L Total Protein 7.1 6.4-8.2 gm/dl Albumin 3.0 3.4-5.0 gm/dl Lipase 130 73-393 U/L Microbiology Results 06/10/16 Blood Culture, Received Pending 06/10/16 Blood Culture, Received Pending CXR normal Normal EKG Impression Assessment and Plan Patient is a 60 y/o female with a PMHx of HTN who presents for evaluation of chills and abnormal labs. Gram negative bacteremia - outpatient culture from 06/09 with gram negative rods - patient received Zosyn and Levofloxacin in ED - repeat cultures pending - continue Zosyn - unclear source of bacteremia (awaiting urine specimen, CXR 2 view clear and no oxygen requirements making pneumonia less likely, no GI symptoms) - lactate normal Hyponatremia / Hypokalemia - likely 2/2 dehydration and continued use of Maxzide - continue IVF's and potassium supplementation - hold Maxzide ANA CRISTINA - likely 2/2 dehydration and continued use of Maxzide - hold Maxzide - continue IVF's Depression with anxiety - continue Cymbalta and Lamictal DVT prophylaxis with heparin sq Advanced Directives Existing Living Will: No Existing Power of Pulling Machine Operator: No VTE Prophylaxis VTE Risk Assessment Done? Y/N: Yes Risk Level: Low
[2016-06-10 11:05] VITALS: BP 89/53; PULSE 82; TEMP 36.8; O2SAT 96
[2016-06-10 11:40] LABS: URINE APPEARANCE TURBID (CLEAR); URINE BILIRUBIN NEG (NEG); URINE COLOR DK YELLOW; URINE EPITHELIAL CELL AUTO >30 /lpf (0-5); URINE NITRITE POS (NEG); URINE SPECIFIC GRAVITY 1.013 (1.000-1.030); UROBILINOGEN NEG (NEG)
[2016-06-10 11:43] LABS: MANUAL MICROSCOPIC REQUIRED? NO; REVIEW REQ? YES
[2016-06-10] MEDS: POTASSIUM CHLORIDE INJ 10 MEQ in SODIUM CHLORIDE 0.9% 1000ML 1,000 ML IV SCH ×2 (13:06→21:25)
[2016-06-10] MEDS: PIPERACILL/TAZOBAC IV 3.375 GM in DEXTROSE 5% 100ML IV SCH ×2 (13:51→21:25)
[2016-06-10] MEDS: HEPARIN SOD 5000 UNIT/0.5 ML CARP SQ SCH ×2 (13:58→21:26)
[2016-06-10 15:39] LABS: BUN/CREATININE RATIO 16.9 (10-20); CALCIUM 8.1 mg/dl (8.5-10.1); CREATININE 1.4 mg/dl (0.60-1.20); POTASSIUM 2.8 mmol/L (3.5-5.1)
[2016-06-10 15:49] VITALS: BP 104/65; PULSE 80; TEMP 36.6; O2SAT 91
[2016-06-10] MEDS ORDERED: POTASSIUM CHLORIDE 20 MEQ TABCR PO ONE (16:00)
[2016-06-10] MEDS: ACETAMINOPHEN 325 MG TAB PO PRN (16:58)
[2016-06-10] MEDS ORDERED: LORAZEPAM 0.5 MG TAB PO ONE (21:42)
[2016-06-10 22:42] VITALS: BP 108/71; PULSE 83; TEMP 36.2; O2SAT 98
[2016-06-11] MEDS: POTASSIUM CHLORIDE INJ 10 MEQ in SODIUM CHLORIDE 0.9% 1000ML 1,000 ML IV SCH ×3 (04:00→20:03)
[2016-06-11 05:11] LABS: HEMATOCRIT 29.8 % (37-47); MEAN CELL VOLUME 86.1 fL (80-100); MEAN CORPUSCULAR HEMOGLOBIN 30.3 pg (25-34); MEAN CORPUSCULAR HGB CONC 35.2 g/dl (32-36); MEAN PLATELET VOLUME 9.5 fL (7.4-10.4); PLATELET COUNT 133 K/uL (130-400); RED BLOOD COUNT 3.46 M/uL (4.2-5.4); WHITE BLOOD COUNT 15.84 K/uL (4.8-10.8)
[2016-06-11] MEDS: ACETAMINOPHEN 325 MG TAB PO PRN ×3 (05:12→20:49)
[2016-06-11] MEDS: HEPARIN SOD 5000 UNIT/0.5 ML CARP SQ SCH ×3 (05:37→22:20)
[2016-06-11 05:40] LABS: BUN/CREATININE RATIO 17.8 (10-20); CALCIUM 8.4 mg/dl (8.5-10.1); CREATININE 1.4 mg/dl (0.60-1.20); POTASSIUM 3.5 mmol/L (3.5-5.1)
[2016-06-11 05:43] LABS: ALB/GLOB RATIO 0.6 (0.9-2)
[2016-06-11] MEDS: PIPERACILL/TAZOBAC IV 3.375 GM in DEXTROSE 5% 100ML IV SCH ×3 (06:08→22:20)
[2016-06-11] MEDS: DULOXETINE HCL 60 MG CAP PO SCH (07:18)
[2016-06-11] MEDS: DULOXETINE (CYMBALTA) 30 MG CAP PO SCH (07:18)
[2016-06-11 07:50] VITALS: BP 105/68; PULSE 83; TEMP 36.6; O2SAT 96
[2016-06-11] MEDS ORDERED: ZOLPIDEM TARTRATE 5 MG TAB PO PRN (09:30)
--- NOTE | 2016-06-11 12:04 | Progress Note ---
Medicine Progress Note Date & Time of Visit: Jun 11, 2016 at 11:58. Subjective Patient seen and examined. Ambulates to bathroom. Denies lightheadedness. Denies chills. Did not get much sleep last night. Objective Last 8 Hrs Date Time Temp Pulse Resp B/P Pulse Ox O2 Delivery O2 Flow Rate FiO2 06/11/16 07:50 36.6 83 18 105/68 96 Room Air 06/11/16 07:26 Room Air Physical Exam: General-awake; alert; NAD Eyes-EOMI; no scleral icterus ENT-clear OP; +upper dentures Neck-no stridor; trachea midline Lungs-scattered rubs and wheezes Heart-RRR; no m/r/g Abdomen-soft; NTND; nBS Extremities-no c/c/e; no deformity Neuro-no focal deficits Back-no CVA tenderness Laboratory Results: Last 24 Hours Test 06/10/16 14:59 06/11/16 04:55 Sodium Level 128 mmol/L 133 mmol/L Potassium Level 2.8 mmol/L 3.5 mmol/L Chloride Level 91 mmol/L 99 mmol/L Carbon Dioxide Level 27 mmol/L 28 mmol/L Anion Gap 10.0 mmol/L 6.0 mmol/L Blood Urea Nitrogen 24 mg/dl 25 mg/dl Creatinine 1.40 mg/dl 1.40 mg/dl Est Creatinine Clear Calc Drug Dose 39.0 ml/min 39.0 ml/min Estimated GFR () 46.9 46.9 Estimated GFR (Non- 40.5 40.5 BUN/Creatinine Ratio 16.9 17.8 Random Glucose 92 mg/dl 96 mg/dl Calcium Level 8.1 mg/dl 8.4 mg/dl White Blood Count 15.84 K/uL Red Blood Count 3.46 M/uL Hemoglobin 10.5 g/dL Hematocrit 29.8 % Mean Corpuscular Volume 86.1 fL Mean Corpuscular Hemoglobin 30.3 pg Mean Corpuscular Hemoglobin Concent 35.2 g/dl RDW Standard Deviation 41.2 fL RDW Coefficient of Variation 12.9 % Platelet Count 133 K/uL Mean Platelet Volume 9.5 fL Total Bilirubin 0.7 mg/dl Aspartate Amino Transf (AST/SGOT) 18 U/L Alanine Aminotransferase (ALT/SGPT) 26 U/L Alkaline Phosphatase 177 U/L Total Protein 6.5 gm/dl Albumin 2.4 gm/dl Globulin 4.1 gm/dl Albumin/Globulin Ratio 0.6 Date/Time Source Procedure Growth Status 06/11/16 04:58 Blood Blood Culture Pending Received 06/11/16 04:55 Blood Blood Culture Pending Received 06/11/16 09:48 Sputum Expectorated Sputum Gram Stain Pending Received 06/11/16 09:48 Sputum Expectorated Sputum Sputum Culture Pending Received Assessment & Plan Patient is a 60 y/o female with a PMHx of HTN who presented for evaluation of chills and abnormal labs. Gram negative bacteremia - outpatient culture from 06/09 with gram negative rods - patient received Zosyn and Levofloxacin in ED - cultures from 06/10 with gram negative bacilli - cultures from 06/11 pending - continue Zosyn - urinalysis with nitrate + and WBC - urine culture with gram negative bacilli - sputum culture pending - lactate normal Hyponatremia / Hypokalemia - likely 2/2 dehydration and continued use of Maxzide - continue IVF's and potassium supplementation - hold Maxzide - improving ANA CRISTINA - likely 2/2 dehydration and continued use of Maxzide - hold Maxzide - continue IVF's - improving Depression with anxiety - continue Cymbalta and Lamictal DVT prophylaxis with heparin sq Current Inpatient Medications: Current Inpatient Medications Medications (Trade) Dose Ordered Sig/Holly Route Start Time Stop Time Status Last Admin Dose Admin Heparin Sodium (Porcine) (Heparin Sq 5000 Unit/0.5ml) 5,000 unit Q8 SQ 06/10/16 14:00 07/10/16 13:59 06/11/16 05:37 5,000 UNIT Acetaminophen (Tylenol Tab) 650 mg Q4H PRN PO 06/10/16 09:00 07/10/16 08:59 06/11/16 05:12 650 MG Polyethylene (Miralax Powder Packet) 17 gm DAILY PRN PO 06/10/16 09:00 07/10/16 08:59 Ondansetron HCl (Zofran Inj) 4 mg Q6H PRN IV 06/10/16 09:00 07/10/16 08:59 Piperacillin Sod/ Tazobactam Sod (Consult) 1 ea UD PRN N/A 06/10/16 09:05 07/10/16 09:04 Albuterol (Ventolin Hfa Inhaler) 2 puffs Q4 PRN INH 06/10/16 09:00 07/10/16 08:59 Duloxetine HCl (Cymbalta Cap) 30 mg QAM PO 06/11/16 08:00 07/11/16 08:59 06/11/16 07:18 30 MG Duloxetine HCl (Cymbalta Cap) 60 mg QAM PO 06/11/16 08:00 07/11/16 08:59 06/11/16 07:18 60 MG Lamotrigine (Lamictal Tab) 100 mg QAM PO 06/11/16 08:00 07/11/16 08:59 06/11/16 07:18 100 MG Betamethasone Dipropion Augmented 1 appln 1 appln BID PRN EXT 06/10/16 09:00 07/10/16 08:59 Potassium Chloride 10 meq/ Sodium Chloride 1,005 ml @ 125 mls/hr Q8H3M IV 06/10/16 12:00 07/10/16 11:59 06/11/16 11:43 125 MLS/HR Piperacillin Sod/ Tazobactam Sod/ Dextrose (Zosyn Iv/D5 100ml) 115 ml @ 28.75 mls/ hr Q8H IV 06/10/16 14:00 06/24/16 13:59 06/11/16 06:08 28.75 MLS/HR Zolpidem Tartrate (Ambien Tab) 5 mg HS PRN PO 06/11/16 09:30 07/11/16 09:29
[2016-06-11 14:55] VITALS: BP 129/77; PULSE 98; TEMP 38.5; O2SAT 98
[2016-06-11 22:28] VITALS: BP 122/74; PULSE 96; TEMP 37.7; O2SAT 98
[2016-06-12] VITALS (8 sets, daily range): BP systolic 128–143; BP diastolic 76–79; PULSE 77–93; TEMP 36.5–38.4; O2SAT 95–99
[2016-06-12] MEDS: POTASSIUM CHLORIDE INJ 10 MEQ in SODIUM CHLORIDE 0.9% 1000ML 1,000 ML IV SCH (03:17)
[2016-06-12] MEDS: PIPERACILL/TAZOBAC IV 3.375 GM in DEXTROSE 5% 100ML IV SCH ×3 (05:28→21:54)
[2016-06-12] MEDS: HEPARIN SOD 5000 UNIT/0.5 ML CARP SQ SCH ×3 (05:32→21:54)
[2016-06-12 06:25] LABS: HEMATOCRIT 27.4 % (37-47); MEAN CELL VOLUME 86.4 fL (80-100); MEAN CORPUSCULAR HGB CONC 34.7 g/dl (32-36); MEAN PLATELET VOLUME 9.4 fL (7.4-10.4); PLATELET COUNT 146 K/uL (130-400); RED BLOOD COUNT 3.17 M/uL (4.2-5.4); WHITE BLOOD COUNT 10.55 K/uL (4.8-10.8)
[2016-06-12 07:09] LABS: BUN/CREATININE RATIO 15.1 (10-20); CALCIUM 8.2 mg/dl (8.5-10.1); POTASSIUM 3.7 mmol/L (3.5-5.1)
[2016-06-12] MEDS: ACETAMINOPHEN 325 MG TAB PO PRN ×3 (07:50→22:02)
[2016-06-12] MEDS: DULOXETINE HCL 60 MG CAP PO SCH (07:50)
[2016-06-12] MEDS: DULOXETINE (CYMBALTA) 30 MG CAP PO SCH (07:50)
--- NOTE | 2016-06-12 10:03 | DIAGNOSTIC IMAGING REPORT ---
ABDOMEN AND PELVIS CT WITHOUT CONTRAST CT DOSE: 1603.52 mGy.cm HISTORY: eval for possible stones; shannon; E coli in urine and blood TECHNIQUE: Multiaxial CT images of the abdomen and pelvis were performed without the use of intravenous and oral contrast according to the standard department stone protocol. COMPARISON STUDY: None. FINDINGS: The lung bases are clear. Left total hip arthroplasty. The unenhanced liver, spleen, adrenal glands, and pancreas are unremarkable. Normal gallbladder. No retroperitoneal lymphadenopathy. Trace pelvic free fluid. The bladder is partially obscured by the metallic artifact from the left hip but appears unremarkable. Small calcified uterine fibroid. Suboptimal evaluation for bowel pathology due to the lack of intravenous and oral contrast. However, there is no definite bowel wall thickening or obstruction. Moderate stool within the colon. No evidence for bowel obstruction. A 7 mm hypodense lesion within the right kidney is too small to characterize. No renal stones or hydronephrosis. Mild bilateral perinephric fat stranding/edema. Subcutaneous soft tissue thickening within the left hip. IMPRESSION: 1. No renal stones or hydronephrosis. 2. Mild bilateral perinephric fat stranding/edema. This could be due to an infectious process such as pyelonephritis or acute renal insufficiency. Recommend correlation with urinalysis. 3. Moderate stool within the colon. 4. No bowel wall thickening or obstruction. 5. Trace pelvic free fluid Electronically signed by: Dejon Pena M.D. 06/12/2016 10:01 AM Dictated Date/Time: 06/12/2016 9:55 AM
--- NOTE | 2016-06-12 16:06 | Progress Note ---
Medicine Progress Note Date & Time of Visit: Jun 12, 2016 at 16:01. Subjective Patient seen and examined. States that she had a good night sleep and feels better this morning. Low grade fever this morning. Objective Last 8 Hrs Date Time Temp Pulse Resp B/P Pulse Ox O2 Delivery O2 Flow Rate FiO2 06/12/16 09:30 95 Room Air 06/12/16 09:27 37.0 Physical Exam: General-awake; alert; NAD Eyes-EOMI; no scleral icterus ENT-+upper dentures Neck-no stridor; trachea midline Lungs-improved scattered rubs Heart-RRR; no m/r/g Abdomen-soft; NTND; nBS Extremities-no c/c/e; no deformity Neuro-no focal deficits Back-no CVA tenderness Laboratory Results: Last 24 Hours Test 06/12/16 05:29 White Blood Count 10.55 K/uL Red Blood Count 3.17 M/uL Hemoglobin 9.5 g/dL Hematocrit 27.4 % Mean Corpuscular Volume 86.4 fL Mean Corpuscular Hemoglobin 30.0 pg Mean Corpuscular Hemoglobin Concent 34.7 g/dl RDW Standard Deviation 43.1 fL RDW Coefficient of Variation 13.4 % Platelet Count 146 K/uL Mean Platelet Volume 9.4 fL Sodium Level 135 mmol/L Potassium Level 3.7 mmol/L Chloride Level 103 mmol/L Carbon Dioxide Level 25 mmol/L Anion Gap 7.0 mmol/L Blood Urea Nitrogen 15 mg/dl Creatinine 1.00 mg/dl Est Creatinine Clear Calc Drug Dose 54.5 ml/min Estimated GFR () 70.4 Estimated GFR (Non- 60.8 BUN/Creatinine Ratio 15.1 Random Glucose 84 mg/dl Calcium Level 8.2 mg/dl Assessment & Plan Patient is a 60 y/o female with a PMHx of HTN who presented for evaluation of chills and abnormal labs. Gram negative bacteremia - outpatient culture from 06/09 with wisdom-susceptible E coli - patient received Zosyn and Levofloxacin in ED - cultures from 06/10 with gram negative bacilli - cultures from 06/11 pending - continue Zosyn - urinalysis with nitrate + and WBC - urine culture with wisdom-sensitive E coli - sputum culture negative - lactate normal - CT a/p negative for stones and suggestive of pyelonephritis Hyponatremia / Hypokalemia - likely 2/2 dehydration and continued use of Maxzide - resolved IVF's and potassium supplementation - hold Maxzide ANA CRISTINA - likely 2/2 dehydration and continued use of Maxzide - hold Maxzide - resolved with IVF's Depression with anxiety - continue Cymbalta and Lamictal DVT prophylaxis with heparin sq Procedures: CT a/p 1. No renal stones or hydronephrosis. 2. Mild bilateral perinephric fat stranding/edema. This could be due to an infectious process such as pyelonephritis or acute renal insufficiency. Recommend correlation with urinalysis. 3. Moderate stool within the colon. 4. No bowel wall thickening or obstruction. 5. Trace pelvic free fluid Current Inpatient Medications: Current Inpatient Medications Medications (Trade) Dose Ordered Sig/Holly Route Start Time Stop Time Status Last Admin Dose Admin Heparin Sodium (Porcine) (Heparin Sq 5000 Unit/0.5ml) 5,000 unit Q8 SQ 06/10/16 14:00 07/10/16 13:59 06/12/16 13:49 5,000 UNIT Acetaminophen (Tylenol Tab) 650 mg Q4H PRN PO 06/10/16 09:00 07/10/16 08:59 06/12/16 07:50 650 MG Polyethylene (Miralax Powder Packet) 17 gm DAILY PRN PO 06/10/16 09:00 07/10/16 08:59 Ondansetron HCl (Zofran Inj) 4 mg Q6H PRN IV 06/10/16 09:00 07/10/16 08:59 Piperacillin Sod/ Tazobactam Sod (Consult) 1 ea UD PRN N/A 06/10/16 09:05 07/10/16 09:04 Albuterol (Ventolin Hfa Inhaler) 2 puffs Q4 PRN INH 06/10/16 09:00 07/10/16 08:59 Duloxetine HCl (Cymbalta Cap) 30 mg QAM PO 06/11/16 08:00 07/11/16 08:59 06/12/16 07:50 30 MG Duloxetine HCl (Cymbalta Cap) 60 mg QAM PO 06/11/16 08:00 07/11/16 08:59 06/12/16 07:50 60 MG Lamotrigine (Lamictal Tab) 100 mg QAM PO 06/11/16 08:00 07/11/16 08:59 06/12/16 07:50 100 MG Betamethasone Dipropion Augmented 1 appln 1 appln BID PRN EXT 06/10/16 09:00 07/10/16 08:59 Piperacillin Sod/ Tazobactam Sod/ Dextrose (Zosyn Iv/D5 100ml) 115 ml @ 28.75 mls/ hr Q8H IV 06/10/16 14:00 06/24/16 13:59 06/12/16 13:49 28.75 MLS/HR Zolpidem Tartrate (Ambien Tab) 5 mg HS PRN PO 06/11/16 09:30 07/11/16 09:29 06/11/16 22:26 5 MG
[2016-06-13 06:04] LABS: HEMATOCRIT 29.4 % (37-47); MEAN CELL VOLUME 86.5 fL (80-100); MEAN CORPUSCULAR HGB CONC 34.7 g/dl (32-36); PLATELET COUNT 159 K/uL (130-400); WHITE BLOOD COUNT 11.23 K/uL (4.8-10.8)
[2016-06-13] MEDS: HEPARIN SOD 5000 UNIT/0.5 ML CARP SQ SCH (06:05)
[2016-06-13] MEDS: PIPERACILL/TAZOBAC IV 3.375 GM in DEXTROSE 5% 100ML IV SCH (06:06)
[2016-06-13 06:41] LABS: BUN/CREATININE RATIO 14.1 (10-20); CALCIUM 8.6 mg/dl (8.5-10.1); CREATININE 1.1 mg/dl (0.60-1.20); POTASSIUM 3.8 mmol/L (3.5-5.1)
[2016-06-13 07:17] VITALS: BP 151/84; PULSE 87; TEMP 37.1; O2SAT 96
[2016-06-13] MEDS: DULOXETINE (CYMBALTA) 30 MG CAP PO SCH (08:56)
[2016-06-13] MEDS: DULOXETINE HCL 60 MG CAP PO SCH (08:56)
--- NOTE | 2016-06-13 09:53 | Discharge Instructions ---
Discharge Instructions Date of Service Jun 13, 2016. Admission Reason for Admission: Bacteremia Discharge Discharge Diagnosis / Problem: Pyelonephritis with bacteremia Discharge Goals Goal(s): Improve disease control Activity Recommendations Activity Limitations: resume your previous activity . Instructions / Follow-Up Instructions / Follow-Up Please follow up with Family Medicine Dr. Rothman on June 21 at 2:00pm. Please do not take Maxzide until otherwise instructed to do so by Dr. Rothman. Please take Levofloxacin (antibiotic) as prescribed starting 06/14/16 until it is finished. Current Hospital Diet Patient's current hospital diet: Regular Diet Discharge Diet Recommended Diet: Regular Diet Pending Studies Studies pending at discharge: no Medical Emergencies . Who to Call and When: Medical Emergencies: If at any time you feel your situation is an emergency, please call 911 immediately. . Non-Emergent Contact Non-Emergency issues call your: Primary Care Provider . . "Provider Documentation" section prepared by Nemo Sawant. . VTE Core Measure Inpt VTE Proph given/why not?: Unfractionated heparin SQ
[2016-06-13] MEDS ORDERED: LVQ750 PO (09:55)
[2016-06-13] MEDS ORDERED: LEVOFLOXACIN CONSULT ACTIVE PRN (10:00)
[2016-06-13] MEDS ORDERED: LEVOFLOXACIN 750 MG TAB PO SCH (11:00)
[2016-06-13 11:04] VITALS: BP 151/84; PULSE 87; TEMP 37.1; O2SAT 96
--- NOTE | 2016-06-13 17:01 | Discharge Summary ---
Discharge Summary Date of Service Jun 13, 2016. Discharge Summary Admission Date: Jun 10, 2016 at 08:59 Discharge Date: Jun 13, 2016 Discharge Disposition: Home Principal Diagnosis: Pyelonephritis with E coli bacteremia Procedures: CT a/p 1. No renal stones or hydronephrosis. 2. Mild bilateral perinephric fat stranding/edema. This could be due to an infectious process such as pyelonephritis or acute renal insufficiency. Recommend correlation with urinalysis. 3. Moderate stool within the colon. 4. No bowel wall thickening or obstruction. 5. Trace pelvic free fluid Medication Reconciliation New Medications: Levofloxacin (Levofloxacin) 750 Mg Tab 1 TAB PO DAILY for 10 Days, #10 TABS Start 06/14/16 Continued Medications: Albuterol Hfa (Ventolin Hfa) 200 Puffs/34419 Mcg Aers 2 PUFFS INH Q4 PRN for SOB/Wheezing Betamethasone Dip (Betamethasone Dipropionat) 45 Appln/15 Gm Cr 1 APPLN TOP BID PRN for dermatitis flares, GM Duloxetine HCl (Cymbalta) 30 Mg Cap 30 MG PO QAM Duloxetine Hcl (Cymbalta) 60 Mg Cap 60 MG PO QAM, CAP Lamotrigine (Lamictal) 100 Mg Tab 100 MG PO QAM, TAB Discontinued Medications: Triamterene/Hctz (Maxzide 75MG/50MG) Tab 0.5 TABLET PO QAM, TAB Admission Information HPI (per Admitting provider): Patient is a 60 y/o female with a PMHx of HTN who presents at the request of her PCP due to elevated WBC count and gram negative rods in a blood culture. Patient notes that she has been feeling unwell for the past 2 weeks. She has been feeling generalized weakness, lightheadedness, palpitations with activity, shaking chills and a cough productive of green sputum. She was seen in clinic on 06/03 for URI symptoms. She was prescribed Tessalon perls and Flonase and was recommended to try OTC medications for symptomatic relief. She followed up on as she was not feeling any better. She had blood work done and blood culture was growing gram negative rods this morning. CBC was also notable for a WBC count of 15. Patient presented to the ED as advised. Of note, patient did have a left hip replacement done in 03/2016. She denies any pain in her hip or any redness in the area. In the ED, vitals were notable for mild tachycardia and hypotension. Labs were remarkable for a WBC count of 20, Na of 127, Cr of 1.7, K of 2.8. CXR was negative. Patient received potassium, IVF's, Zosyn and Levofloxacin. Physical Exam (per Admitting): General- awake; alert; NAD Eyes- EOMI; no scleral icterus ENT- clear OC/OP; upper dentures; poor dentition of lower teeth Neck- no palpable LAD; no stridor Lungs- CTA bilaterally; no wheezes/crackles Heart- RRR; no m/r/g Abdomen- soft; NTND; nBS Back- no gross abnormalities Extremities- full ROM of left hip; slight tenderness to palpation of left inner thigh Neuro- no focal deficits Skin- +dermatitis rash of fingers and toes with no open skin lesions/wounds; left hip incision well healed with no surrounding erythema . Hospital Course Patient is a 60 y/o female with a PMHx of HTN who presented for evaluation of chills and abnormal labs. Patient was found to have E coli pyelonephritis with bacteremia. Urine and blood cultures grew pansensitive E coli. CT a/p was negative for stones but suggestive of pyelonephritis. Patient had been started on Zosyn, and this was transitioned to Levofloxacin upon discharge. Repeat blood cultures were negative. Chemistry abnormalities present on admission (hyponatremia, hypokalemia and ANA CRISTINA ) resolved with holding Maxzide, IVF hydration and supplementation. Patient was instructed to continue to hold Maxzide upon discharge until follow up with her PCP. Patient was continued on the remainder of her home medications with the exceptions noted above. Patient deemed stable for discharge with Family medicine follow up. PE on discharge: General- awake; alert; NAD Eyes- EOMI; no scleral icterus Neck- no stridor; trachea midline Lungs- CTA bilaterally; no wheezes/crackles Heart- RRR; no m/r/g Abdomen- soft; NTND; nBS Back- no CVA tenderness Extremities- no c/c/e; no deformity Neuro- no focal deficits Skin- no appreciable rash . Total time spent on discharge = This includes examination of the patient, discharge planning, medication reconciliation, and communication with other providers. Discharge Instructions Discharge Instructions Date of Service Jun 13, 2016. Admission Reason for Admission: Bacteremia Discharge Discharge Diagnosis / Problem: Pyelonephritis with bacteremia Discharge Goals Goal(s): Improve disease control Activity Recommendations Activity Limitations: resume your previous activity . Instructions / Follow-Up Instructions / Follow-Up Please follow up with Family Medicine Dr. Rothman on June 21 at 2:00pm. Please do not take Maxzide until otherwise instructed to do so by Dr. Rothman. Please take Levofloxacin (antibiotic) as prescribed starting 06/14/16 until it is finished. Current Hospital Diet Patient's current hospital diet: Regular Diet Discharge Diet Recommended Diet: Regular Diet Pending Studies Studies pending at discharge: no Medical Emergencies . Who to Call and When: Medical Emergencies: If at any time you feel your situation is an emergency, please call 911 immediately. . Non-Emergent Contact Non-Emergency issues call your: Primary Care Provider . . "Provider Documentation" section prepared by Nemo Sawant. . VTE Core Measure Inpt VTE Proph given/why not?: Unfractionated heparin SQ Additional Copies To Antoine Rothman D.O.
--- NOTE | 2016-06-14 18:11 | Progress Note ---
Progress Note Date of Service Jun 14, 2016. Progress Note Pt admitted 06/10-06/13 with UTI and blood cx (06/10) + Pansensitive E.Coli. Pt was treated with Zosyn in the hospital and discharged yesterday on 10-day course of Levaquin. Lab called today as repeat blood cx (06/11) was + for gram neg bacilli. Spoke with patient via telephone. She is still feeling very fatigued however all urinary sxs have resolved and she has not had any fevers. Patient has f/u apt with PCP June 21. Instructed patient to return to ED with worsening sxs/fever.
== END 2016-06-13 11:30 | disposition home or self-care (01) | DRG 690 ==
LOC: ENRESERVTM → ENRESERVDT → C.EDB 06:49 → C.4E 08:59
PROVIDERS: ADMIT Internal Medicine; ATTEND Internal Medicine
DX: N12 Tubulo-interstitial nephritis, not specified as acute or chronic (principal); E87.1 Hypo-osmolality and hyponatremia; R78.81 Bacteremia; N17.9 Acute kidney failure, unspecified; F32.9 Major depressive disorder, single episode, unspecified; F41.9 Anxiety disorder, unspecified; B96.20 Unspecified Escherichia coli [E. coli] as the cause of diseases classified elsewhere; I10 Essential (primary) hypertension; E87.6 Hypokalemia; E86.0 Dehydration; Z96.642 Presence of left artificial hip joint; Z87.891 Personal history of nicotine dependence; Z79.899 Other long term (current) drug therapy

== ENCOUNTER → 2016-08-18 | Outpatient (CLI) | payer BC ==
[~2016-08-18] MED LIST changes: -ACET-1138 PO; -ALBU1AER9 INH; -ASPEC81 PO; -B-COTAB18 PO; -CLB200 PO; -DIPROSONE TOP; +DPRSCR15 TOP; +LVQ750 PO; -OMEG10007 PO; -ONDA8TAB6 PO; -RXC5 PO; -SNK PO; -TRIA75TA53 PO; +VNTHFA/IN INH
== END | disposition home or self-care (01) ==
LOC: C.PAPS 09:41
PROVIDERS: ATTEND Obstetrics & Gynecology
DX: Z01.419 Encounter for gynecological examination (general) (routine) without abnormal findings (principal)

== ENCOUNTER → 2017-01-05 | Outpatient (CLI) | payer BC ==
--- NOTE | 2017-01-05 14:01 | DIAGNOSTIC IMAGING REPORT ---
CT SCAN OF THE LEFT HINDFOOT WITHOUT IV CONTRAST CLINICAL HISTORY: Osteoarthritis of the hindfoot. COMPARISON STUDY: Radiographs of the left foot dated 12/12/2007. TECHNIQUE: CT scan of the left hindfoot is performed from the distal tibia and fibula to the base of the foot. Images are reviewed in the axial, sagittal and coronal planes. IV contrast was not administered for this examination. A dose lowering technique was utilized adhering to the principles of ALARA. Note that interpretation is suboptimal without current plain film correlate. CT DOSE: 185.14 mGy.cm FINDINGS: The skeletal structures are osteopenic. No acute fracture is seen. There is chronic posttraumatic deformity of the calcaneus. Screw tracts are present in the calcaneus. There is a small focus of incomplete bony fusion of the anterior calcaneal cortex seen on axial image 241. The ankle mortise is intact. Mild arthritic change is present along the medial aspect of the talar dome. No osteochondral defect is identified. Moderate to advanced arthritic change is present in the hindfoot, greatest at the subtalar joint. Spurring is seen along the dorsal aspect of the tarsal bones. No erosive change is identified. There is calcification seen along the medial bundle of the plantar fascia. Edema is present along the plantar aspect of the foot at this site and this may represent plantar fasciitis. There is calcification identified along the course of the Achilles tendon which appears thickened. This likely represents tendinopathy. The regional musculature is mildly atrophic. The anterior, posterior, and peroneal tendons are intact as imaged by CT. IMPRESSION: 1. No acute fracture is seen. 2. Osteopenia and posttraumatic change as above. 3. Arthritic changes present about the hindfoot, greatest at the subtalar joint. 4. Findings suggest tendinopathy of the Achilles tendon. 5. Question plantar fasciitis. Clinical correlation will be required. Dictated: 01/05/2017 1:39 PM Transcribed: 01/05/2017 2:01 PM Sumit Electronically signed by: Toni Aguila M.D. 01/05/2017 2:07 PM Dictated Date/Time: 01/05/2017 1:39 PM
== END | disposition home or self-care (01) ==
LOC: C.CTS 12:05
PROVIDERS: ATTEND Orthopaedic Surgery Sports Medicine
DX: M19.072 Primary osteoarthritis, left ankle and foot (principal); M85.872 Other specified disorders of bone density and structure, left ankle and foot

== ENCOUNTER → 2017-04-26 | Outpatient (CLI) | payer BC ==
--- NOTE | 2017-04-27 08:02 | MAMMOGRAPHY REPORT ---
BILATERAL DIGITAL SCREENING MAMMOGRAM TOMOSYNTHESIS WITH CAD: 04/26/2017 CLINICAL HISTORY: Routine screening. Patient has no complaints. TECHNIQUE: Breast tomosynthesis in addition to standard 2D mammography was performed. Current study was also evaluated with a Computer Aided Detection (CAD) system. COMPARISON: Comparison is made to exams dated: 04/25/2016 mammogram, 04/21/2015 mammogram, 04/18/2014 maryse mogram, 04/17/2013 mammogram, 04/16/2012 mammogram, and 04/11/2011 mammogram - [facility]. BREAST COMPOSITION: There are scattered areas of fibroglandular density in both breasts. FINDINGS: No suspicious mass, architectural distortion or cluster of microcalcifications is seen. T here are stable asymmetries in the lateral right breast and in the middle one third of the left breas t along the posterior nipple line on the MLO view. IMPRESSION: ACR BI-RADS CATEGORY 1: NEGATIVE There is no mammographic evidence of malignancy. A 1 year screening mammogram is recommended. The pa tient will receive written notification of the results. Approximately 10% of breast cancers are not detected with mammography. A negative mammographic report should not delay biopsy if a clinically suggestive mass is present. Zoey Watkins M.D. ay/:04/26/2017 13:15:33 Deputy Director Of Nursing: Emeli Guardado, [facility] letter sent: Normal 1/2 BI-RADS Code: ACR BI-RADS Category 1: Negative
== END | disposition home or self-care (01) ==
LOC: C.MAMM 12:52
PROVIDERS: ATTEND Obstetrics & Gynecology
DX: Z12.31 Encounter for screening mammogram for malignant neoplasm of breast (principal)

== ENCOUNTER → 2017-10-11 | Outpatient (CLI) | payer BC | END | disposition home or self-care (01) | LOC: C.PAPS 15:40 | PROVIDERS: ATTEND Obstetrics & Gynecology | DX: Z01.419 Encounter for gynecological examination (general) (routine) without abnormal findings (principal) ==